=== PATIENT | male | born 1990 | race Caucasian/White ===

== ENCOUNTER 2017-03-30 14:34 | Emergency (ER) | payer SELFPAY ==
[~2017-03-30] VITALS: Ht 170.2 cm; Wt 78.2 kg
[2017-03-30 14:43] VITALS: BP 136/80
--- NOTE | 2017-03-30 14:47 | NUR ---
PATIENT PRESENTS TO ED WITH C/O PRODUCTIVE COUGH, FEVER, SORE THROAT 8/10 WITH BODY ACHES X 4 DAYS; TOOK 500MG X 2 IBUPROFEN AT 1200 TODAY HX; DENIES RX; DENIES DENIES N/V/D; SKIN IS PINK/WARM/DRY; AAOX4 WITH EVEN AND STEADY GAIT; LUNGS CLEAR BL; HR EVEN AND REGULAR; PT DENIES ANY FEVER, CP, SOB, OR COUGH AT THIS TIME; PATIENT STATES PAIN OF 8/10 AT THIS TIME; VSS; PATIENT POSITIONED FOR COMFORT; ER MD MADE AWARE OF PT STATUS.
[2017-03-30] MEDS ORDERED: ALBUTEROL SULFATE/IPRATROPIU 3 ML SOL IH ONE (15:05)
[2017-03-30] MEDS ORDERED: methylPREDNISolone SS 125 MG/2 ML VIAL IM ONE (15:05)
[2017-03-30] MEDS ORDERED: NACL 0.9% 1,000 ML IV ONE (15:25)
[2017-03-30] MEDS ORDERED: LEVOFLOXACIN 750 MG TAB PO ONE (15:25)
[2017-03-30 15:48] VITALS: BP 119/75
== END 2017-03-30 16:01 | disposition home or self-care (01) ==
LOC: MED 14:34
DX: J18.1 Lobar pneumonia, unspecified organism (principal); R03.0 Elevated blood-pressure reading, without diagnosis of hypertension
CPT/HCPCS: 36415; 71045; 87804; 94640; 96372; 99285; J2930; J7620